=== PATIENT | female | born 1990 ===

== ENCOUNTER 2022-08-18 08:23 | Outpatient (REF) | payer OTHER, SELFPAY ==
[2022-08-20 10:27] LABS: Lyme Blot 1.61 index
[2022-08-21 11:41] LABS: Lyme Abs Screen POSITIVE
[2022-08-23 15:26] LABS: 18 KD (IgG) Band NON-REACTIVE; 23 KD (IgG) Band NON-REACTIVE; 23 KD (IgM) Band NON-REACTIVE; 28 KD (IgG) Band NON-REACTIVE; 30 KD (IgG) Band NON-REACTIVE; 39 KD (IgM) Band NON-REACTIVE; 39KD (IgG) Band NON-REACTIVE; 41 KD (IgM) Band NON-REACTIVE; 41KD (IgG) Band REACTIVE; 45 KD (IgG) Band NON-REACTIVE; 58 KD (IgG) Band NON-REACTIVE; 66 KD (IgG) Band NON-REACTIVE; 93 KD (IgG) Band NON-REACTIVE; Lyme IgG Blot Interp NEGATIVE (NEGATIVE); Lyme IgM Blot Interp NEGATIVE (NEGATIVE)
== END 2022-08-18 08:24 | disposition home or self-care (01) ==
LOC: HO.MANLDS 08:23
PROVIDERS: Visit Provider Internal Medicine
DX: T14.8XXA Other injury of unspecified body region, initial encounter (principal); W57.XXXA Bitten or stung by nonvenomous insect and other nonvenomous arthropods, initial encounter
CPT/HCPCS: 36415; 86617; 86618

== ENCOUNTER 2024-01-04 11:34 | Outpatient (REF) | payer OTHER, SELFPAY ==
[2024-01-04 13:50] LABS: HCG Quantitative 13654 mIU/mL
== END 2024-01-04 11:35 | disposition home or self-care (01) ==
LOC: HO.MANLNP 11:34
PROVIDERS: Visit Provider Physician Assistant
DX: Z33.1 Pregnant state, incidental (principal)
CPT/HCPCS: 36415; 84702